=== PATIENT | male | born 1995 | race African-American/Black ===

== ENCOUNTER 2022-01-05 16:03 | Emergency (ER) | payer BC, OTHER ==
[~2022-01-05] VITALS: Ht 185.4 cm; Wt 143.4 kg
[2022-01-05] MEDS ORDERED: DIPHTH/TETANUS/ACEL. PERTUSSIS 0.5 ML SYR IM ONE (16:30)
[2022-01-05] MEDS ORDERED: KETOROLAC TROMETHAMINE 60 MG/2 ML VIAL IM ONE (16:30)
[2022-01-05] MEDS ORDERED: TETANUS/DIPHTHERIA TOX ADULT 0.5 ML SYR ONE (16:37)
[2022-01-05] MEDS ORDERED: KETOROLAC TROMETHAMINE 30 MG/ML VIAL ONE (16:37)
[2022-01-05] MEDS ORDERED: BACITRACIN ZINC 0.9GM TP ONE (16:45)
== END 2022-01-05 17:16 | disposition home or self-care (01) ==
LOC: FSED 16:33
DX: S93.492A Sprain of other ligament of left ankle, initial encounter (principal); S80.812A Abrasion, left lower leg, initial encounter; W22.8XXA Striking against or struck by other objects, initial encounter; Y92.89 Other specified places as the place of occurrence of the external cause; F17.210 Nicotine dependence, cigarettes, uncomplicated
CPT/HCPCS: 73590; 73600; 90471; 90714 ×2; 96372; 99283; J1885

== ENCOUNTER 2022-01-18 18:53 | Emergency (ER) | payer SELFPAY ==
[~2022-01-18] VITALS: Ht 185.4 cm; Wt 143.3 kg
[2022-01-18] MEDS ORDERED: CEFTRIAXONE 1 GM VIAL IM ONE (19:30)
[2022-01-18] MEDS ORDERED: CLEOCIN HCL300 MG PO (19:30)
[2022-01-18] MEDS ORDERED: BACTRIM DS TAB1 EACH PO (19:30)
[2022-01-18] MEDS ORDERED: LIDOCAINE HCL 1% LOCAL INJ 20 ML VIAL ONE (19:42)
== END 2022-01-18 20:00 | disposition home or self-care (01) ==
LOC: FSED 19:05
DX: L03.116 Cellulitis of left lower limb (principal); F17.210 Nicotine dependence, cigarettes, uncomplicated
CPT/HCPCS: 99282; J0696; J2001